=== PATIENT | male | born 1955 | race American Indian/Alaskan Native ===

== ENCOUNTER 2018-03-04 18:47 | Emergency (ER) | payer BC ==
[2018-03-04 19:30] LABS: Hematocrit 41.4 % (35.5-45.6); Hemoglobin 13.5 gm/dl (11.8-15.2); Mean Corpuscular HGB Conc 33 % (32-34); Mean Corpuscular Hemoglobin 33 pg (28-32); Mean Corpuscular Volume 101 fl (84-94); Platelet Count 158 K/mm3 (140-440); Red Cell Distribution Width 14.1 % (13.2-15.2)
[2018-03-04 19:37] LABS: INR 0.95 (0.87-1.13)
[2018-03-04 19:38] LABS: Partial Thromboplastin Time 32.7 Sec. (24.2-36.6)
--- NOTE | 2018-03-05 00:04 | Emergency Department Report ---
ED General Adult HPI - General Chief complaint: GI Bleed Stated complaint: BLEEDING NOSE/RECTAL Time Seen by Provider: 03/04/18 23:45 Source: patient Mode of arrival: Ambulatory Limitations: No Limitations - History of Present Illness Severity scale (0 -10): 0 - Related Data Previous Rx's Medication Instructions Recorded Last Taken Type Fluticasone [Flonase] 1 spray NS QDAY #1 bottle 03/05/18 Unknown Rx Oxymetazoline 0.05% [Afrin] 2 spray NS BID #1 bottle 03/05/18 Unknown Rx Allergies Allergy/AdvReac Type Severity Reaction Status Date / Time No Known Allergies Allergy Unverified 03/04/18 18:56 ED Review of Systems ROS: Stated complaint: BLEEDING NOSE/RECTAL Other details as noted in HPI ED Past Medical Hx - Past Medical History Hx Hypertension: Yes Hx Diabetes: Yes Additional medical history: cardiac stents. - Surgical History Past Surgical History?: Yes - Social History Smoking Status: Current Every Day Smoker Substance Use Type: Marijuana - Medications Home Medications: Home Medications Medication Instructions Recorded Confirmed Last Taken Type Fluticasone [Flonase] 1 spray NS QDAY #1 bottle 03/05/18 Unknown Rx Oxymetazoline 0.05% [Afrin] 2 spray NS BID #1 bottle 03/05/18 Unknown Rx ED Physical Exam - General Limitations: No Limitations General appearance: alert, in no apparent distress - Head Head exam: Present: atraumatic, normocephalic - Eye Eye exam: Present: normal appearance, PERRL, EOMI. Absent: nystagmus - ENT ENT exam: Present: normal exam, normal orophraynx, mucous membranes moist, normal external ear exam - Neck Neck exam: Present: normal inspection, full ROM. Absent: tenderness, meningismus - Respiratory Respiratory exam: Present: normal lung sounds bilaterally. Absent: respiratory distress - Cardiovascular Cardiovascular Exam: Present: regular rate, normal rhythm, normal heart sounds. Absent: bradycardia, tachycardia, irregular rhythm, systolic murmur, diastolic murmur, rubs, gallop - GI/Abdominal GI/Abdominal exam: Present: soft, normal bowel sounds. Absent: distended, tenderness, guarding, rebound, rigid, pulsatile mass - Rectal Rectal exam: Present: normal inspection, normal rectal tone, heme (-) stool, other (escorted by nurse Jamia Cohen) - Extremities Exam Extremities exam: Present: normal inspection, full ROM, normal capillary refill. Absent: pedal edema, joint swelling, calf tenderness - Back Exam Back exam: Present: normal inspection, full ROM. Absent: paraspinal tenderness , vertebral tenderness - Neurological Exam Neurological exam: Present: alert, oriented X3, CN II-XII intact, normal gait, other (Extraocular movements intact. Tongue midline. No facial droop. Facial sensation intact to light touch in the V1, V2, V3 distribution bilaterally. 5 and 5 strength in 4 extremities.. Sensation is intact to light touch in 4 extremities.). Absent: motor sensory deficit - Psychiatric Psychiatric exam: Present: normal affect, normal mood - Skin Skin exam: Present: warm, dry, intact, normal color. Absent: rash ED Course Vital Signs 03/04/18 03/04/18 03/04/18 18:53 21:32 21:45 Temperature 98.3 F Pulse Rate 95 H 86 87 Respiratory 16 16 14 Rate Blood Pressure 126/82 115/87 Blood Pressure [Left] O2 Sat by Pulse 97 99 Oximetry 03/04/18 21:46 Temperature 99.2 F Pulse Rate 89 Respiratory 16 Rate Blood Pressure Blood Pressure 115/87 [Left] O2 Sat by Pulse 97 Oximetry ED Medical Decision Making - Lab Data Result diagrams: 03/04/18 19:17 Vital Signs 03/04/18 03/04/18 03/04/18 18:53 21:32 21:45 Temperature 98.3 F Pulse Rate 95 H 86 87 Respiratory 16 16 14 Rate Blood Pressure 126/82 115/87 Blood Pressure [Left] O2 Sat by Pulse 97 99 Oximetry 03/04/18 21:46 Temperature 99.2 F Pulse Rate 89 Respiratory 16 Rate Blood Pressure Blood Pressure 115/87 [Left] O2 Sat by Pulse 97 Oximetry Lab Results 03/04/18 03/04/18 Range/Units 19:17 19:17 WBC 3.6 L (4.5-11.0) K/mm3 RBC 4.10 (3.65-5.03) M/mm3 Hgb 13.5 (11.8-15.2) gm/dl Hct 41.4 (35.5-45.6) % MCV 101 H (84-94) fl MCH 33 H (28-32) pg MCHC 33 (32-34) % RDW 14.1 (13.2-15.2) % Plt Count 158 (140-440) K/mm3 PT 13.2 (12.2-14.9) Sec. INR 0.95 (0.87-1.13) APTT 32.7 (24.2-36.6) Sec. - Medical Decision Making Differential diagnosis, including but not limited to: Medication side effect, resolved nasal bleeding, resolved rectal bleeding Assessment and plan: 62-year-old male with resolved nasal bleeding, and resolved rectal bleeding, on Plavix. He reports a colonoscopy in 2014 which demonstrated a polyp, however no other disease. He is afebrile with reassuring vital signs. He is advised that if his bleeding may likely return. He is counseled to hold his Plavix for the next 2-3 days, and to follow-up with a deep submergence vehicle operator for reevaluation of his antiplatelet therapy within the next 3-5 days. He is also given a tongue depressor device to assist with nasal bleeding if and when it does occur. He has been observed in the ER for hours without clinical, dictation, and he is medically suitable to follow-up as an outpatient. Return precautions are reviewed. Critical care attestation.: If time is entered above; I have spent that time in minutes in the direct care of this critically ill patient, excluding procedure time. ED Disposition Clinical Impression: History of rectal bleeding, History of epistaxis Disposition: - TO HOME OR SELFCARE Is pt being admited?: No Does the pt Need Aspirin: No Condition: Stable Instructions: Epistaxis (ED), Rectal Bleeding (ED) Additional Instructions: Continue current outpatient medications, with the exception of Plavix. Hold Plavix for the next 3 days. Follow up with a deep submergence vehicle operator within the next 3 days for reevaluation of blood thinning medications. If nasal bleeding returns , which likely will, apply one to 2 sprays of Afrin in each nostril, apply tongue depressor device to the nose, and hold pressure as directed for 20 minutes. This typically stops nasal bleeding. If nasal bleeding does not stop with this, then return to the emergency room. Rectal bleeding should resolve on its own. However if rectal bleeding persists, or gets worse, especially when the patient is off of blood thinning medications, the patient should return to the ER right away. Otherwise, follow-up with your gate shear operator or a gate shear operator within the next 6 weeks. Not following up with gastroenterology as recommended may resultant undiagnosed tumor, cancer, malignancy. Return to the ER right away with new pain, worsened pain, migration of pain, fevers, chills, lethargy, irritability, rectal vomiting, change in mental status , confusion, inability to tolerate liquid feedings. Referrals: PRIMARY CARE, [Primary Care Provider] - 3-5 Days [facility] [Provider Group] - 3-5 Days [facility] [Provider Group] - 3-5 Days [facility] [Provider Group] - 3-5 Days
[2018-03-05 00:28] VITALS: BP 126/97
== END 2018-03-05 00:37 | disposition home or self-care (01) ==
LOC: ED 18:47
DX: K92.2 Gastrointestinal hemorrhage, unspecified (principal); I10 Essential (primary) hypertension; E11.9 Type 2 diabetes mellitus without complications; F17.200 Nicotine dependence, unspecified, uncomplicated; F12.90 Cannabis use, unspecified, uncomplicated
CPT/HCPCS: 36415; 85027; 85610; 85730; 99283